=== PATIENT | female | born 1990 | race American Indian/Alaskan Native ===

== ENCOUNTER 2020-01-03 00:46 | Emergency (ER) | payer SELFPAY | END 2020-01-03 02:20 | disposition left against medical advice (07) | LOC: ED 00:46 | DX: J02.9 Acute pharyngitis, unspecified (principal); Z53.21 Procedure and treatment not carried out due to patient leaving prior to being seen by health care provider ==

== ENCOUNTER 2021-12-29 22:42 | Emergency (ER) | payer SELFPAY ==
[2021-12-30] MEDS ORDERED: BUTALB/ACETAMINOPHEN/CAFFEINE TAB PO ONE (04:48)
[2021-12-30] MEDS ORDERED: IBUPROFEN 600 MG TAB PO ONE (04:48)
[2021-12-30] MEDS ORDERED: ONDANSETRON 4 MG ODT TAB PO ONE (04:48)
[2021-12-30 05:29] LABS: Basophils % (Auto) 0.7 % (0.0-1.8); Eosinophils # (Auto) 0.1 K/mm3 (0.0-0.4); Hematocrit 36.3 % (30.3-42.9); Hemoglobin 12.4 gm/dl (10.1-14.3); Lymphocytes # (Auto) 1.8 K/mm3 (1.2-5.4); Lymphocytes % (Auto) 28.7 % (13.4-35.0); Mean Corpuscular HGB Conc 34 % (30-34); Mean Corpuscular Volume 96 fl (79-97); Monocytes # (Auto) 0.5 K/mm3 (0.0-0.8); Monocytes % (Auto) 8.7 % (0.0-7.3); Platelet Count 407 K/mm3 (140-440); Red Cell Distribution Width 13.1 % (13.2-15.2)
[2021-12-30 05:52] LABS: Alanine Aminotransferase 7 units/L (7-56); Albumin 4.3 g/dL (3.9-5); Blood Urea Nitrogen 9 mg/dL (7-17); Calcium 9.4 mg/dL (8.4-10.2); Hemolysis Index 17
[2021-12-30 05:56] LABS: BUN/Creatinine Ratio 15
[2021-12-30 06:11] LABS: Bacteria,Urine 1+ /HPF (Negative); Mucus,Urine 3+ /HPF
[2021-12-30 06:19] LABS: Color,Urine Yellow (Yellow)
--- NOTE | 2021-12-30 06:25 | Emergency Department Report ---
ED General Adult HPI - General Chief complaint: Weakness Stated complaint: JACI/WEAK/NO APPETITE Source: patient Mode of arrival: Ambulatory Limitations: No Limitations - History of Present Illness Initial comments: Patient is a 31-year-old -[place] female with no past medical history who presents to the ED with complaint of acute onset persistent generalized weakness and fatigue, nausea, persistent headache with lack of appetite for the last 3 days. Patient states that in the last 2 days she has been sleeping most of the time because of generalized weakness and fatigue. Patient also states that she is currently on her menstrual cycle although she states that she normally does not get any pain with her menstrual cycle. Patient denies dizziness, syncope, chest pain, shortness of breath, cough, sore throat, nasal and sinus congestion, neck pain, abdominal pain, vaginal discharge, dysuria, nausea and vomiting or diarrhea. MD Complaint: Headache; cough; generalized weakness, fatigue -: Gradual, days(s) (3) Location: head Radiation: non-radiation Severity scale (0 -10): 7 Quality: aching, sharp Consistency: constant Improves with: none Worsens with: none Associated Symptoms: denies other symptoms, cough, headaches, loss of appetite, malaise, weakness. denies: confusion, chest pain, diaphoresis, fever/chills, nausea/vomiting, rash, seizure, shortness of breath, syncope Treatments Prior to Arrival: none - Related Data Previous Rx's Medication Instructions Recorded Last Taken Type Butalb/Acetamin/Caff 50-325-40 1 - 2 tab PO Q6HR PRN #15 tab 12/30/21 Unknown Rx [Fioricet 50-325-40] Ibuprofen [Motrin] 600 mg PO Q8H PRN #30 tablet 12/30/21 Unknown Rx Ondansetron [Zofran Odt] 4 mg PO Q8HR PRN #15 tab.rapdis 12/30/21 Unknown Rx Allergies Allergy/AdvReac Type Severity Reaction Status Date / Time No Known Allergies Allergy Unverified 12/29/21 23:46 ED Review of Systems ROS: Stated complaint: JACI/WEAK/NO APPETITE Other details as noted in HPI Constitutional: malaise, weakness. denies: chills, fever Eyes: denies: eye pain, eye discharge, vision change ENT: congestion. denies: ear pain, throat pain Respiratory: cough. denies: shortness of breath, wheezing Cardiovascular: denies: chest pain, palpitations Endocrine: no symptoms reported Gastrointestinal: denies: abdominal pain, nausea, vomiting, diarrhea Genitourinary: denies: urgency, dysuria, discharge Musculoskeletal: denies: back pain, joint swelling, arthralgia Skin: denies: rash, lesions Neurological: headache. denies: weakness, paresthesias Psychiatric: denies: anxiety, depression Hematological/Lymphatic: denies: easy bleeding, easy bruising ED Past Medical Hx - Medications Home Medications: Home Medications Medication Instructions Recorded Confirmed Last Taken Type Butalb/Acetamin/Caff 50-325-40 1 - 2 tab PO Q6HR PRN #15 tab 12/30/21 Unknown Rx [Fioricet 50-325-40] Ibuprofen [Motrin] 600 mg PO Q8H PRN #30 tablet 12/30/21 Unknown Rx Ondansetron [Zofran Odt] 4 mg PO Q8HR PRN #15 tab.rapdis 12/30/21 Unknown Rx ED Physical Exam - General Limitations: No Limitations General appearance: alert, in no apparent distress - Head Head exam: Present: atraumatic, normocephalic, normal inspection - Eye Eye exam: Present: normal appearance, PERRL, EOMI Pupils: Present: normal accommodation - ENT ENT exam: Present: normal exam, normal orophraynx, mucous membranes moist, TM's normal bilaterally, normal external ear exam - Neck Neck exam: Present: normal inspection, full ROM. Absent: tenderness - Respiratory Respiratory exam: Present: normal lung sounds bilaterally. Absent: respiratory distress, wheezes, rales, rhonchi, stridor, chest wall tenderness, accessory muscle use, decreased breath sounds, prolonged expiratory - Cardiovascular Cardiovascular Exam: Present: normal rhythm, bradycardia, normal heart sounds. Absent: systolic murmur, diastolic murmur, rubs, gallop - GI/Abdominal GI/Abdominal exam: Present: soft, normal bowel sounds. Absent: tenderness, guarding, rebound, hyperactive bowel sounds, hypoactive bowel sounds, organomegaly, mass, bruit - Extremities Exam Extremities exam: Present: normal inspection, full ROM, normal capillary refill. Absent: tenderness - Back Exam Back exam: Present: normal inspection, full ROM. Absent: tenderness, CVA tenderness (R), CVA tenderness (L), muscle spasm, paraspinal tenderness, vertebral tenderness - Neurological Exam Neurological exam: Present: alert, oriented X3, CN II-XII intact, normal gait, reflexes normal - Psychiatric Psychiatric exam: Present: normal affect, normal mood - Skin Skin exam: Present: warm, dry, intact, normal color. Absent: rash ED Course Vital Signs 12/29/21 23:42 Temperature 98.3 F Pulse Rate 59 L Respiratory 18 Rate Blood Pressure 106/73 [Right] O2 Sat by Pulse 100 Oximetry ED Medical Decision Making - Lab Data Result diagrams: 12/30/21 05:00 12/30/21 05:00 - Medical Decision Making This is a 31-year-old -[place] female with no past medical history who presents to the ED with complaint of acute onset persistent generalized weakness and fatigue, nausea, persistent headache with lack of appetite for the last 3 days. Patient states that in the last 2 days she has been sleeping most of the time because of generalized weakness and fatigue. Patient also states that she is currently on her menstrual cycle although she states that she normally does not get any pain with her menstrual cycle. In the ED, patient is alert and oriented x3 and is not in any distress. Patient was treated in the ED for pain. All lab test results were reviewed and are all nonactionable. On re evaluation, patient felt better, pain resolved and patient was discharged home on medications and advised to follow-up with her primary care physician in 5 to 7 days for reevaluation. Patient was advised return to the ED immediately if symptoms get worse. - Differential Diagnosis URI; Sinusitis; Anemia; dysmenorrhea; dehydration Critical care attestation.: If time is entered above; I have spent that time in minutes in the direct care of this critically ill patient, excluding procedure time. ED Disposition Clinical Impression: Generalized weakness Tension-type headache, not intractable Qualifiers: Headache chronicity pattern: acute headache Qualified Code(s): G44.209 - Tension-type headache, unspecified, not intractable Disposition: 01 HOME / SELF CARE / HOMELESS Is pt being admited?: No Does the pt Need Aspirin: No Condition: Stable Instructions: Weakness, [id number], Tension Headache, Adult, [id number], General Headache Without Cause, [id number] Additional Instructions: All lab test results were reviewed and are all nonactionable. Therefore take medication with food, drink plenty of fluids, follow-up with your primary care physician in 7 to 10 days for reevaluation. Return to the ED immediately if symptoms get worse. Prescriptions: Butalb/Acetamin/Caff 50-325-40 [Fioricet 50-325-40] 1 - 2 tab PO Q6HR PRN #15 tab PRN Reason: Headache Ibuprofen [Motrin] 600 mg PO Q8H PRN #30 tablet PRN Reason: Pain Ondansetron [Zofran Odt] 4 mg PO Q8HR PRN #15 tab.rapdis PRN Reason: Nausea Referrals: NAVJOT BARILLAS MD [Primary Care Provider] - 3-5 Days Forms: Work/School Release Form(ED) Time of Disposition: 06:25 Print Language: OCCITAN
[2021-12-30 06:52] VITALS: BP 118/71
== END 2021-12-30 06:52 | disposition home or self-care (01) ==
LOC: ED 22:42
DX: R53.1 Weakness (principal); G44.209 Tension-type headache, unspecified, not intractable
CPT/HCPCS: 36415; 80053; 81001; 84703; 85025; 99283; 99284; J3490; Q0162